=== PATIENT | female | born 1985 | race Caucasian/White ===

== ENCOUNTER → 2018-06-15 | Outpatient (CLI) | END | disposition home or self-care (01) ==

== ENCOUNTER 2018-08-20 09:59 | Emergency (ER) | END 2018-08-20 13:07 | disposition home or self-care (01) ==

== ENCOUNTER 2019-02-04 13:08 | Inpatient (IN) | payer MEDICAID ==
[~2019-02-04] VITALS: Ht 157.5 cm; Wt 69.0 kg
[~2019-02-04 13:08] MED LIST: ACET500C5 PO
[2019-02-04] MEDS ORDERED: LACTATED RINGER'S 1,000 ML IV PRN (13:21)
[2019-02-04] MEDS ORDERED: AMPICILLIN 2 GM/NS (PMX) 100 ML ONE (13:22)
[2019-02-04 13:29] VITALS: Ht 157.5 cm; Wt 69.0 kg
[2019-02-04 13:30] VITALS: BP 142/93; PULSE 77; RESP 18
[2019-02-04] MEDS ORDERED: METHYLERGONOVINE 0.2 MG INJ IM PRN ×2 (13:30→19:00)
[2019-02-04] MEDS ORDERED: BUTORPHANOL 2 MG INJ IV PRN ×2 (13:30)
[2019-02-04] MEDS ORDERED: LIDOCAINE 1% (MPF) 30 ML INJ INJ PRN (13:30)
[2019-02-04] MEDS ORDERED: MISOPROSTOL 200 MCG TAB PR PRN ×2 (13:30→19:00)
[2019-02-04] MEDS ORDERED: IBUPROFEN 600 MG TAB PO PRN (13:30)
[2019-02-04] MEDS ORDERED: AMPICILLIN 2 GM/NS (PMX) 100 ML IV ONE (13:30)
[2019-02-04] MEDS ORDERED: OXYTOCIN 30 UNITS/LR 500 ML IV PRN ×2 (13:30→19:00)
[2019-02-04] MEDS ORDERED: OXYTOCIN 30 UNITS/LR 500 ML IV SCH ×2 (13:30)
[2019-02-04] MEDS ORDERED: CARBOPROST 250 MCG INJ IM PRN ×2 (13:30→19:00)
[2019-02-04] MEDS ORDERED: OXYCODONE/ASPIRIN (4.88/325) TAB PO PRN ×3 (13:30→19:00)
--- NOTE | 2019-02-04 13:46 | PREAC ---
Date/Time of Note Date/Time of Note DATE: 02/04/19 TIME: 13:45 Anesthesia Eval and Record Evaluation Time Pre-Procedure Interview DATE: 02/04/19 TIME: 13:45 Age 33 Sex female NPO: Other (n/a) Preoperative diagnosis IUP Planned procedure labor epidural Past Medical History Past Medical History: Includes : : (5), Para: (3) Surgery & Anesthesia Issues No known issue Meds Anticoagulation: No Beta Homa within 24 hr: No Reason Beta Homa not given: Pt. not on B-Homa Active Scripts Acetaminophen* (Tylophen*) 500 Mg Capsule, 1 CAP PO Q6H PRN for PAIN AND OR ELEVATED TEMP, #20 CAP Prov:VANDANA MARSHALL PA-C 08/20/18 Current Medications Ampicillin 100 ml @ 100 mls/hr ONCE ONCE IV Last administered on 02/04/19at 13:32; Admin Dose 100 MLS/HR; Start 02/04/19 at 13:30; Stop 02/04/19 at 14:29 Ampicillin 50 ml @ 100 mls/hr Q4H IV ; Start 02/04/19 at 17:30 Butorphanol Tartrate (Stadol) 1 mg Q2H PRN IV PAIN; Start 02/04/19 at 13:30 Butorphanol Tartrate (Stadol) 2 mg Q2H PRN IV .PAIN; Start 02/04/19 at 13:30 Lidocaine (Xylocaine 1% (Mpf)) 30 ml ONCE PRN INJ .EPISIOTOMY; Start 02/04/19 at 13:30 Oxytocin/Lactated Ringer's 500 ml @ 500 mls/hr ONCE POST IV ; Start 02/04/19 at 13:30 Oxytocin/Lactated Ringer's 500 ml @ 125 mls/hr POST IV ; Start 02/04/19 at 13:30 Ibuprofen (Motrin) 600 mg ONCE PRN PO .PAIN 1-5; Start 02/04/19 at 13:30 Oxycodone/Aspirin (Percodan) 2 tab ONCE PRN PO .PAIN 6-10; Start 02/04/19 at 13:30 Lactated Ringer's 1,000 ml @ 2,000 mls/hr Q30M PRN IV .ANESTHESIA Last administered on 02/04/19at 13:32; Admin Dose 2,000 MLS/HR; Start 02/04/19 at 13:21 Oxytocin/Lactated Ringer's 500 ml @ 0 mls/hr ONCE PRN IV .VAGINAL BLEEDING; Start 02/04/19 at 13:30 Methylergonovine Maleate (Methergine) 0.2 mg ONCE PRN IM .VAGINAL BLEEDING; Start 02/04/19 at 13:30 Carboprost Tromethamine (Hemabate) 250 mcg ONCE PRN IM .VAGINAL BLEEDING; Start 02/04/19 at 13:30 Misoprostol (Cytotec) 1,000 mcg ONCE PRN AR .VAGINAL BLEEDING; Start 02/04/19 at 13:30 Meds reviewed: Yes Allergies Coded Allergies: No Known Allergy (Unverified , 08/20/18) Allergies Reviewed: Yes Labs/Studies Labs Reviewed: Reviewed by anesthesiologist test: N/A Pre-procedure Exam Last vitals Vital Signs Date Temp Pulse Resp B/P (MAP) Pulse Ox O2 O2 Flow FiO2 Time Delivery Rate 02/04/19 98.2 77 18 142/93 Room Air 13:30 (109) Airway: Adequate mouth opening, Adequate thyromental dist Mallampati: Mallampati II Teeth: Normal Lung: Normal Heart: Normal ASA Physical Status ASA physical status: 2 Emergency: None Planned Anesthetic Neuraxial: Epidural Planned Pain Management Epidural, Parenteral pain med Pre-operative Attestations Prior to commencing anesthesia and surgery, the patient was re-evaluated, there was verification of: *The patient's identity *The results of appropriate recent lab work and preoperative vital signs *The above evaluation not changing prior to induction *Anesthetic plan, risk benefits, alternative and complications discussed with patient/family; questions answered; patient/family understands, accepts and wishes to proceed. LISA MILIAN MD Feb 04, 2019 13:46
[2019-02-04] MEDS ORDERED: NALOXONE (0.4 MG/ML) INJ IV PRN (14:00)
[2019-02-04] MEDS ORDERED: DIPHENHYDRAMINE 50 MG INJ IV PRN (14:00)
[2019-02-04] MEDS ORDERED: ONDANSETRON 4 MG INJ IV PRN (14:00)
[2019-02-04] MEDS ORDERED: ROPIVACAINE 0.2% 100ML BAG EPI SCH (14:00)
[2019-02-04] MEDS ORDERED: FENTAnyl 2MCG/ML-ROPIV 0.2% 100 ML ONE (14:15)
[2019-02-04] MEDS ORDERED: LACTATED RINGER'S 1,000 ML IV ONE (14:30)
--- NOTE | 2019-02-04 14:49 | PAC ---
Date/Time of Note Date/Time of Note DATE: 02/04/19 TIME: 14:48 Post-Anesthesia Notes Post-Anesthesia Note Last documented vital signs Vital Signs Date Temp Pulse Resp B/P (MAP) Pulse Ox O2 O2 Flow FiO2 Time Delivery Rate 02/04/19 98.2 77 18 142/93 Room Air 13:30 (109) Activity: WNL Respiratory function: WNL Cardiovascular function: WNL Mental status: Baseline Pain reasonably controlled: Yes Hydration appropriate: Yes Nausea/Vomiting absent: Yes Comments BP: 110/62 HR: 78 RR:16 T: 98 SaO2: 100% LISA MILIAN MD Feb 04, 2019 14:49
[2019-02-04] MEDS ORDERED: LACTATED RINGER'S 1,000 ML IV SCH (15:00)
--- NOTE | 2019-02-04 17:04 | HP ---
Date/Time of Note Date/Time of Note DATE: 02/04/19 TIME: 16:57 OB - History Hx of Present Free Text/Dictation 32 y.o A1 at 39w4d sent from her OB for active labor with VE 7cm VE initial 7cm EFM CAT II with variable base line 140's admitted for expectant management. Chief Complaint: UC's Estimated Due Date: Feb 07, 2019 : 5 Para: 3 Spontaneous : 1 Care: Good Care Ultrasounds: Normal mid trimester US Obstetrical Complications: None Medical Complications: None Past Family/Social History * Past Medical, Surgical, Family and Obstetric Histories reviewed from chart. Blood Type: O+ Rubella: immune RPR/VDRL: Negative GBS Status: Unknown HBsAG: Negative OB Admission Exam Vital Signs Vital Signs Vital Signs Date Temp Pulse Resp B/P (MAP) Pulse Ox O2 O2 Flow FiO2 Time Delivery Rate 02/04/19 98.2 77 18 142/93 Room Air 13:30 (109) Physical Exam HEENT: WNL Heart: Rhythm Normal Lungs: Clear, Equal Abdomen: WNL Extremities: Normal Reflexes: Normal Cervical Dilatation: 7cm Effacement: 100% Station: -3 Membranes: Intact Amniotic Fluid: Unevaluable Heart Rate: 140's Accelerations: Accelerations Present Decelerations: Variable Decelerations Varibility: Moderate Contractions on Admission: < 5 Minutes Apart Intensity: Firm Last 72 hours Lab Results CBC & BMP 02/04/19 13:53 OB Assessment/Plan Reason for admission: active labor Other Assessment: IUP 39w4d Plan: Expectant Management JOHN MIKE MD Feb 04, 2019 17:04
--- NOTE | 2019-02-04 17:07 | LDN ---
Date/Time of Note Date/Time of Note DATE: 02/04/19 TIME: 17:05 Delivery Summary of normal female Weeks of Gestation 39w4d Placenta Delivered: Spontaneously Meconium: none Episiotomy: No Perineal laceration: 0 Anesthesia type: None Estimated blood loss: 50 Sponge & Needle done & correct: Yes All needle counts correct: Yes Any foreign bodies felt in the: No Infant Delivery Information Sex Infant Sex: female Apgars 1 Minute: 9 5 Minute: 9 Suctioning Nose & mouth suctioned at los: Yes Delee suction performed: Yes Umbilical Cord Umbilical cord with: 3 Vessels Cord presentations: no nuchal cord Cord Blood was obtained: Yes Mother & Baby Disposition Disposition Mom & Baby to Maternity; Good: Yes Mom transferred to: Other Baby to NICU: No () JOHN MIKE MD Feb 04, 2019 17:07
[2019-02-04] MEDS ORDERED: AMPICILLIN 1 GM/NS (PMX) 50 ML IV SCH (17:30)
[2019-02-04 18:30] VITALS: BP 118/66; PULSE 69; RESP 18
[2019-02-04] MEDS: IBUPROFEN 600 MG TAB PO SCH (18:58)
[2019-02-04] MEDS ORDERED: ZOLPIDEM 5 MG TAB PO PRN (19:00)
[2019-02-04] MEDS ORDERED: WITCH HAZEL/GLYCERIN PAD PR PRN (19:00)
[2019-02-04] MEDS ORDERED: BENZOCAINE 20% 56 ML SPRAY TOP PRN (19:00)
[2019-02-04 19:30] VITALS: BP 122/64; PULSE 75; RESP 19
[2019-02-04] MEDS: SENNA/DOCUSATE NA (8.6MG/50MG) TAB PO SCH (21:24)
[2019-02-05] MEDS: IBUPROFEN 600 MG TAB PO SCH ×4 (00:04→17:30)
[2019-02-05] MEDS: LANOLIN HPA 1 PKT TOP PRN (00:04)
[2019-02-05 03:42] VITALS: BP 97/51; PULSE 62; RESP 17
[2019-02-05 08:45] VITALS: BP 115/72; PULSE 71
[2019-02-05] MEDS: SENNA/DOCUSATE NA (8.6MG/50MG) TAB PO SCH ×2 (08:47→21:39)
--- NOTE | 2019-02-05 11:13 | PN ---
Date/Time of Note Date/Time of Note DATE: 02/05/19 TIME: 11:10 OB Subjective Subjective Subjective Reports decreased vaginal bleeding. Breast-feeding. Ambulating. Urinated. . Denies any depressive symptoms. Reports slight tenderness in the right calf. OB Objective Objective Objective General appearance: Alert and oriented x4 does not appear to be in any acute distress Abdomen: Soft, fundus palpable and firm and nontender at the level of umbilicus No CVA tenderness Extremities: No calf tenderness, no click no edema no cord palpable Breast: No evidence of mastitis or fissure CBC & BMP 02/04/19 13:53 02/05/19 08:14 VS - Last 72 Hours, by Label Date Temp Pulse Resp B/P (MAP) Pulse Ox O2 O2 Flow FiO2 Time Delivery Rate 02/05/19 98.0 62 17 97/51 (66) Room Air 03:42 02/04/19 98.4 75 19 122/64 Room Air 19:30 (83) 02/04/19 98.3 69 18 118/66 Room Air 18:30 (83) 02/04/19 98.2 77 18 142/93 Room Air 13:30 (109) OB Assessment/Plan Other Assessment: S post day #1 Right calf mild tenderness Likely musculoskeletal, clinically does not show evidence of DVT however due to patient status recommend Doppler of lower extremity in the right side Proceed with Doppler of lower extremity in the right side routine care anticipate DC home tomorrow MERLY IRWIN MD Feb 05, 2019 11:13
[2019-02-05 15:21] VITALS: BP 110/71; PULSE 18; RESP 18
[2019-02-05 20:10] VITALS: BP 95/55; PULSE 73; RESP 18
[2019-02-06] MEDS: IBUPROFEN 600 MG TAB PO SCH ×3 (00:07→12:28)
[2019-02-06 04:10] VITALS: BP 102/66; PULSE 78; RESP 18
[2019-02-06 08:00] VITALS: BP 119/76; RESP 18
[2019-02-06] MEDS ORDERED: DIPHTH/TET/ACEL PERTUSS (ADULT) 0.5 ML VIAL IM* ONE (09:00)
[2019-02-06] MEDS: SENNA/DOCUSATE NA (8.6MG/50MG) TAB PO SCH (09:00)
[2019-02-06] MEDS: LANOLIN HPA 1 PKT TOP PRN (12:28)
[2019-02-06 16:05] VITALS: BP 121/83; PULSE 71; RESP 18
--- NOTE | 2019-02-06 16:30 | DS ---
Date/Time of Note Date/Time of Note DATE: 02/06/19 TIME: 16:30 Discharge Summary Admission/Discharge Info Admit Date/Time Feb 04, 2019 at 13:08 Discharge Date/Time 02/06/2019 Discharge Diagnosis Patient Condition: Good Hospital Course uneventful Home Meds Active Scripts Acetaminophen* (Tylophen*) 500 Mg Capsule, 1 CAP PO Q6H PRN for PAIN AND OR ELEVATED TEMP, #20 CAP Prov:VANDANA MARSHALL PA-C 08/20/18 Primary Care Provider Care Physician FAY Sharif M.D. Feb 06, 2019 16:30
--- NOTE | 2019-02-06 16:30 | QN ---
Documentation Comment PPD# 2 is stable.afebrile.No VB +BM +voids Vs stable Gen NAD Abd soft NT ND Genitalia No blood at perineum --->Discharge Home FAY MORENO M.D. Feb 06, 2019 16:30
--- NOTE | 2019-02-07 19:58 | DELSUM ---
Delivery Summary A-C Datetime Report Generated by CPN: 02/07/2019 19:58 DELIVERY PERSONNEL Hr Representative: Thang, Minerva MATERNAL INFORMATION Delivery Anesthesia: Epidural Delivery QBL (ml): 50 Placenta Cultured: No Maternal Complications: None LABOR SUMMARY EDC: 02/07/2019 00:00 No. Babies in Womb: 1 Attempted: No Labor Anesthesia: Epidural LABOR INFORMATION Reason for Induction: Not Applicable Onset of Labor: 02/04/2019 08:00 Complete Dilatation: 02/04/2019 15:45 Oxytocin: N/A Group B Beta Strep: Done, Result Unknown Antibiotics # of Doses: 1 Antibiotics Time of Last Dose: 02/04/2019 13:32 Steroids Given: None Reason Steroids Not Administered: Not Applicable MEMBRANES Membranes Rupture Method: Artificial Rupture of Membranes: 02/04/2019 15:45 Length of Rupture (hr): 0.12 Amniotic Fluid Color: Clear Amniotic Fluid Amount: Large Amniotic Fluid Odor: None STAGES OF LABOR Stage 1 hr: 7 Stage 1 min: 45 Stage 2 hr: 0 Stage 2 min: 7 Stage 3 hr: 0 Stage 3 min: 2 Total Time in Labor hr: 7 Total Time in Labor min: 54 VAGINAL DELIVERY Episiotomy: None Laceration Extension: N/A Laceration Type: None Laceration Repair: Not Applicable Initial Vag Sponge Count: 15 Final Vag Sponge Count: 15 Initial Vag Sharps Count: 1 Final Vag Sharps Count: 1 Sponge Count Correct: Yes Sharps Count Correct: Yes BABY A INFORMATION Infant Delivery Date/Time: 02/04/2019 15:52 Method of Delivery: Vaginal Born in Route : No : N/A Forceps: N/A Vacuum Extraction: N/A Shoulder Dystocia : N/A SHOULDER DYSTOCIA BABY A Infant Delivery Date/Time: 02/04/2019 15:52 PRESENTATION/POSITION BABY A Presentation: Cephalic Cephalic Presentation: Vertex Breech Presentation: N/A PLACENTA INFORMATION BABY A Placenta Delivery Time : 02/04/2019 15:54 Placenta Method of Delivery: Spontaneous Placenta Status: Delivered SCORES BABY A Heart Rate 1 min: >100 bpm Resp Effort 1 min: Good Cry Reflex Irritability 1 min: Cough/Sneeze/Pulls Away Muscle Tone 1 min: Active Motion Color 1 min: Body [place], Extremit Blue Resuscitation Effort 1 min: Tactile Stimulation SCORE 1 MIN: 9 Heart Rate 5 min: >100 bpm Resp Effort 5 min: Good Cry Reflex Irritability 5 min: Cough/Sneeze/Pulls Away Muscle Tone 5 min: Active Motion Color 5 min: Body [place], Extremit Blue SCORE 5 MIN: 9 INFANT INFORMATION BABY A Gestational Age at Delivery: 39.4 Gestational Status: Full Term- 39- 40.6 Weeks Infant Outcome : Liveborn Infant Condition : Stable Sex: Female IDENTIFICATION/MEDS BABY A ID Band Number: [id number] ID Band Location: Right Leg; Left Leg Sensor Applied: Yes Sensor Number: [id number] Sensor Location : Cord Clamp Vitamin K Given : Not Given Erythromycin Given: Not Given WEIGHT/LENGTH BABY A Infant Birthweight (gm): 3040 Infant Weight (lb): 6 Weight (oz): 11 Length (in): 19.50 Infant Length (cm): 49.53 CORD INFORMATION BABY A No. Cord Vessels: 3 Nuchal Cord : N/A Nuchal Cord- Other: COMPOUND PRESENTATION Cord Blood Taken: Yes Infant Suction: Mouth; Nose
== END 2019-02-06 19:40 | disposition home or self-care (01) | DRG 807 ==
LOC: L-D 13:08 → PP1 18:28 → EDSTATUS 02-07 13:04
PROVIDERS: ADMIT Obstetrics & Gynecology; ATTEND Obstetrics & Gynecology
PROC: 10E0XZZ Delivery of Products of Conception, External Approach (ICD-10-PCS; principal; 2019-02-04)
DX: O76 Abnormality in fetal heart rate and rhythm complicating labor and delivery (principal); Z37.0 Single live birth; M79.661 Pain in right lower leg; Z3A.39 39 weeks gestation of pregnancy; Z23 Encounter for immunization
CPT/HCPCS: 62322; 85025; 85610; 85730; 86592; 86850; 86900; 86901; 93971; 99464; J0290; J0595; J2590; J3010; J7120